=== PATIENT | female | born 1965 | race Caucasian/White ===

== ENCOUNTER 2017-01-30 06:56 | Day surgery (SDC) | payer MEDICAID ==
[2017-01-30] MEDS ORDERED: TETRACAINE 0.5% OPHTH 1 DOSE AFFEYE ONE ×3 (07:22→09:10)
[2017-01-30] MEDS ORDERED: VIGAMOX 0.5% OPHTH 1 DOSE AFFEYE ONE ×5 (07:23→09:23)
[2017-01-30] MEDS ORDERED: NS 500 ML IV 500 ML IV ONE (07:24)
[2017-01-30] MEDS ORDERED: PROLENSA OPHTH 1 DOSE AFFEYE ONE (07:34)
[2017-01-30] MEDS ORDERED: ALPHAGAN-P OPHTH 1 DOSE AFFEYE ONE (07:35)
[2017-01-30] MEDS ORDERED: CYCLOGYL 1% OPHTH 1 DOSE OP ONE ×5 (07:36→07:40)
[2017-01-30] MEDS ORDERED: AK-DILATE 2.5% OPHTH 1 DOSE OP ONE ×5 (07:36→07:40)
[2017-01-30] MEDS ORDERED: MYDRIACIL OPHTH 1 DOSE AFFEYE ONE ×5 (07:36→07:40)
[2017-01-30] MEDS ORDERED: BETADINE OPHTH SOLN 5% EACHEYE ONE (09:10)
[2017-01-30] MEDS ORDERED: BSS OPHTH (PLAIN) 500 ML with VANCOMYCIN HCL 500 MG VIAL 25 MG, ADRENALINE CHL INJ 1 MG IR ONE ×6 (09:14)
[2017-01-30] MEDS ORDERED: XYLOCAINE-MPF 1% IJ ONE ×2 (09:17→09:24)
[2017-01-30] MEDS ORDERED: ADRENALINE CHL INJ IJ ONE ×2 (09:17→09:24)
[2017-01-30] MEDS ORDERED: DUOVISC IO ONE ×2 (09:17→09:24)
[2017-01-30 10:53] VITALS: BP 129/66
== END 2017-01-30 10:00 | disposition home or self-care (01) ==
LOC: SURG1 06:56
PROVIDERS: ATTEND Ophthalmology
PROC: 08RJ3JZ Replacement of Right Lens with Synthetic Substitute, Percutaneous Approach (ICD-10-PCS; principal; 2017-01-30 08:15)
PROC: 08DJ3ZZ Extraction of Right Lens, Percutaneous Approach (ICD-10-PCS; principal; 2017-01-30 08:15)
DX: H25.11 Age-related nuclear cataract, right eye (principal); H25.011 Cortical age-related cataract, right eye
CPT/HCPCS: A4217; J0170; J3370